=== PATIENT | female | born 1950 | race Caucasian/White ===

== ENCOUNTER → 2018-04-06 | Outpatient (CLI) | payer OTHER | LOC: M.CT 12:37 | DX: M54.16 Radiculopathy, lumbar region (principal); K80.80 Other cholelithiasis without obstruction; D17.71 Benign lipomatous neoplasm of kidney; J98.11 Atelectasis ==

== ENCOUNTER → 2018-04-18 | Outpatient (CLI) | payer OTHER | LOC: M.ULTRA 11:30 | DX: N28.89 Other specified disorders of kidney and ureter (principal); D30.01 Benign neoplasm of right kidney ==

== ENCOUNTER → 2018-04-24 | Outpatient (CLI) | payer OTHER | LOC: M.MRI 11:00 | DX: M47.28 Other spondylosis with radiculopathy, sacral and sacrococcygeal region (principal); M51.16 Intervertebral disc disorders with radiculopathy, lumbar region; M48.061 Spinal stenosis, lumbar region without neurogenic claudication; M12.88 Other specific arthropathies, not elsewhere classified, other specified site; M51.46 Schmorl's nodes, lumbar region; R10.2 Pelvic and perineal pain ==

== ENCOUNTER → 2020-05-07 | Outpatient (CLI) | payer MEDICARE | LOC: M.ULTRA 14:00 | PROVIDERS: ATTEND Registered Nurse Diabetes Educator | DX: R22.1 Localized swelling, mass and lump, neck (principal); E83.52 Hypercalcemia ==

== ENCOUNTER → 2020-10-08 | Outpatient (CLI) | payer MEDICARE | LOC: M.ULTRA 13:50 | PROVIDERS: ATTEND Registered Nurse Diabetes Educator | DX: E04.1 Nontoxic single thyroid nodule (principal) ==